=== PATIENT | male | born 1955 | race Caucasian/White ===

== ENCOUNTER → 2019-07-10 | Outpatient (CLI) | payer OTHER | END | disposition home or self-care (01) | LOC: CFH 07:55 | PROVIDERS: ATTEND Nurse Practitioner Family | DX: R94.2 Abnormal results of pulmonary function studies (principal); F10.20 Alcohol dependence, uncomplicated | CPT/HCPCS: 70490 ==

== ENCOUNTER 2020-02-28 23:08 | Emergency (ER) | payer MEDICARE, OTHER ==
[~2020-02-28] VITALS: Ht 185.4 cm; Wt 97.0 kg
[2020-02-28 23:42] VITALS: BP 115/67
[2020-02-28] MEDS ORDERED: [UNRECOGNIZED DRUG - OTHER] (23:45)
[2020-02-28] MEDS ORDERED: DESYREL (23:45)
[2020-02-28] MEDS ORDERED: LOSA1TAB19 PO (23:45)
[2020-02-28] MEDS ORDERED: ASPI-515 PO (23:45)
--- NOTE | 2020-02-28 23:49 | NUR ---
PT UP TO RESTROOM ON STEADY GAIT, DENIES DIZZINESS.
--- NOTE | 2020-02-29 00:39 | NUR ---
PT RESTING ON GURNEY, NOSE BLEED HAS STOPPED. SPOUSE AT BEDSIDE.
== END 2020-02-29 01:23 | disposition home or self-care (01) ==
LOC: ED 02-29 00:01
DX: R04.0 Epistaxis (principal); J45.909 Unspecified asthma, uncomplicated; I10 Essential (primary) hypertension
CPT/HCPCS: 99283

== ENCOUNTER 2020-09-28 11:17 | Emergency (ER) | payer MEDICARE, OTHER ==
[~2020-09-28] VITALS: Ht 185.4 cm; Wt 92.2 kg
[~2020-09-28 11:17] MED LIST: ASPI-963 PO; DESYREL; LOSA1TAB19 PO; [UNRECOGNIZED DRUG - OTHER]
--- NOTE | 2020-09-28 11:34 | NUR ---
PATIENT WALKED BACK FROM TRIAGE WITH CHIEF C/O SHAKINESS. PATIENT REPORTS COUGH, SOB, CONGESTION AND MUCUS PRODUCTION. PATIENT STATES WHEN HE WAKES UP HE IS "REALLY SHAKY" X3-4 DAYS. PATIENT REPORTS SHAKINESS ONGOING FOR A LONG TIME BUT HAS GOTTEN WORSE THE LAST FEW DAYS. PATIENT DENIES FEVER, DENIES N/V/D. PATIENT'S BASELINE O2 NEEDS ARE 2 LPM NC, NO INCREASE IN O2 DEMAND. NADN, VSS, CALL LIGHT WITHIN REACH.
--- NOTE | 2020-09-28 12:31 | NUR ---
PATIENT SITTING IN GURNEY, NADN, VSS, PILLOW PROVIDED FOR COMFORT, CALL LIGHT WITHIN REACH. WAITING FOR IMAGING RESULTS.
[2020-09-28 13:01] VITALS: BP 113/69
== END 2020-09-28 13:22 | disposition home or self-care (01) ==
LOC: ED 12:40
DX: J00 Acute nasopharyngitis [common cold] (principal); Z20.822 Contact with and (suspected) exposure to COVID-19; R06.02 Shortness of breath; I10 Essential (primary) hypertension
CPT/HCPCS: 71045; 87635; 99284

== ENCOUNTER 2020-10-15 22:12 | Emergency (ER) | payer MEDICARE, OTHER ==
[~2020-10-15] VITALS: Ht 185.4 cm; Wt 95.0 kg
[2020-10-15 22:15] VITALS: BP 126/66
[2020-10-15] MEDS ORDERED: LIDOCAINE-MPF 1%, 5ML ONE (22:46)
[2020-10-15] MEDS ORDERED: DIPH,PERTUSS(ACELL),TET VAC/PF 0.5 ML IM-VACC ONE ×2 (22:46→23:00)
[2020-10-15] MEDS ORDERED: LIDOCAINE-MPF 1%, 5ML INFIL ONE (23:00)
[2020-10-15] MEDS ORDERED: NEOSPORIN OINT. PKT 1 PACKET ONE (23:13)
== END 2020-10-15 23:36 | disposition home or self-care (01) ==
LOC: ED 22:55
DX: S61.012A Laceration without foreign body of left thumb without damage to nail, initial encounter (principal); I10 Essential (primary) hypertension; W26.9XXA Contact with unspecified sharp object(s), initial encounter; Y93.89 Activity, other specified; Y92.009 Unspecified place in unspecified non-institutional (private) residence as the place of occurrence of the external cause; Y99.8 Other external cause status
CPT/HCPCS: 12001; 90471; 90715; 99283

== ENCOUNTER 2020-11-14 17:15 | Emergency (ER) | payer MEDICARE, OTHER ==
[~2020-11-14] VITALS: Ht 185.4 cm; Wt 93.4 kg
--- NOTE | 2020-11-14 18:18 | NUR ---
PT HAS CO NASAL CONGESTION AND UNABLE TO BREATH THROUGH NOSE. DENIES COUGH OR SORE THROAT. HAS TRIED OTC MED.
[2020-11-14 21:20] VITALS: BP 124/76
--- NOTE | 2020-11-14 21:22 | NUR ---
Rx reviewed with pt and family. Patient/Caregiver given discharge instructions and they have confirmed that they understand the instructions. Patient ambulatory with steady gait.
== END 2020-11-14 21:24 | disposition home or self-care (01) ==
LOC: ED 19:10
DX: B34.9 Viral infection, unspecified (principal); R09.81 Nasal congestion; J34.89 Other specified disorders of nose and nasal sinuses; R05 Cough; I10 Essential (primary) hypertension
CPT/HCPCS: 71045; 99283

== ENCOUNTER → 2021-02-06 | Outpatient (CLI) | payer MEDICARE, OTHER | END | disposition home or self-care (01) | LOC: CFH 14:07 | PROVIDERS: ATTEND Nurse Practitioner Family | DX: J98.11 Atelectasis (principal) | CPT/HCPCS: 71046 ==

== ENCOUNTER 2021-04-09 10:16 | Emergency (ER) | payer MEDICARE, OTHER ==
[~2021-04-09] VITALS: Ht 185.4 cm; Wt 88.5 kg
[2021-04-09] MEDS ORDERED: KETOROLAC 30 MG/1 ML IM ONE (12:00)
[2021-04-09 12:06] LABS: BASOPHILS % (AUTO) 0 % (0-1); EOSINOPHILS % (AUTO) 1 % (1-7); LYMPHOCYTES % (AUTO) 6 % (22-44); MEAN CORPUSCULAR HEMOGLOBIN 31.8 pg (27.5-34.5); MEAN CORPUSCULAR HGB CONC 36.2 g/dL (33.2-36.2); MEAN PLATELET VOLUME 8.9 fL (7.4-10.4); MONOCYTES % (AUTO) 7 % (2-9); NEUTROPHILS % (AUTO) 87 % (42-75); PLATELET COUNT 180 x10^3/uL (130-400); RED BLOOD COUNT 4.53 x10^6/uL (4.38-5.82); RED CELL DISTRIBUTION WIDTH 14.8 % (9.4-14.8)
[2021-04-09 12:16] LABS: ALBUMIN 4.1 g/dL (3.4-5.0); ANION GAP 7 mmol/L (5-15); CALCIUM 9.8 mg/dL (8.5-10.1); CHLORIDE 107 mmol/L (98-107)
[2021-04-09] MEDS ORDERED: KETOROLAC 30 MG/1 ML ONE (12:18)
[2021-04-09 12:20] LABS: ALANINE AMINOTRANSFERASE 10 U/L (12-78); ALKALINE PHOSPHATASE 50 U/L (45-117); CREATININE 0.74 mg/dL (0.7-1.3); TOTAL PROTEIN 6.7 g/dL (6.4-8.2)
[2021-04-09 12:21] VITALS: BP 129/69
[2021-04-09 12:29] LABS: MICROSCOPIC INDICATED
--- NOTE | 2021-04-09 12:32 | NUR ---
PT RESTING IN BED WITH FAMILY AT PT SIDE, PT ON MONITOR WITH PT VSS. PT MEDICATED PER OCT.
== END 2021-04-09 13:29 | disposition home or self-care (01) ==
LOC: ED 13:23
DX: N30.00 Acute cystitis without hematuria (principal); M54.5 Low back pain; I10 Essential (primary) hypertension; J45.909 Unspecified asthma, uncomplicated; G20 Parkinson's disease
CPT/HCPCS: 36415; 74021; 80053; 81001; 85025; 87086; 96372; 99284; J1885

== ENCOUNTER 2021-04-20 18:45 | Emergency (ER) | payer MEDICARE, OTHER ==
[~2021-04-20] VITALS: Ht 185.4 cm; Wt 90.0 kg
[2021-04-20 19:27] LABS: BASOPHILS % (AUTO) 0 % (0-1); EOSINOPHILS % (AUTO) 4 % (1-7); LYMPHOCYTES % (AUTO) 12 % (22-44); MEAN CORPUSCULAR HEMOGLOBIN 30.9 pg (27.5-34.5); MEAN CORPUSCULAR HGB CONC 35.3 g/dL (33.2-36.2); MEAN PLATELET VOLUME 8.3 fL (7.4-10.4); MONOCYTES % (AUTO) 9 % (2-9); NEUTROPHILS % (AUTO) 76 % (42-75); PLATELET COUNT 222 x10^3/uL (130-400); RED CELL DISTRIBUTION WIDTH 14.7 % (9.4-14.8)
[2021-04-20 19:35] LABS: ALANINE AMINOTRANSFERASE 14 U/L (12-78); ALBUMIN 3.9 g/dL (3.4-5.0); ANION GAP 7 mmol/L (5-15); CALCIUM 9.8 mg/dL (8.5-10.1); CHLORIDE 105 mmol/L (98-107); CREATININE 0.87 mg/dL (0.7-1.3)
[2021-04-20 19:37] LABS: ALKALINE PHOSPHATASE 53 U/L (45-117); BILIRUBIN,TOTAL 0.7 mg/dL (0.2-1.0); TOTAL PROTEIN 6.9 g/dL (6.4-8.2)
[2021-04-20 20:15] LABS: MICROSCOPIC NOT IND
[2021-04-20] MEDS ORDERED: SODIUM CHLORIDE FLUSH 10ML SYR IVF ONE (20:30)
--- NOTE | 2021-04-20 20:34 | NUR ---
PT TO CT AT THIS TIME
[2021-04-20] MEDS ORDERED: OMNIPAQUE 350 MG/ML, 100ML BOTTLE ONE (20:47)
[2021-04-20] MEDS ORDERED: ONDANSETRON 2MG/ML, 2ML IVPush ONE (21:30)
[2021-04-20] MEDS ORDERED: MORPHINE SULFATE 4 MG/ML, 1ML IVPush PRN (21:30)
[2021-04-20] MEDS ORDERED: KETOROLAC 30 MG/1 ML IVPush ONE (21:30)
[2021-04-20] MEDS ORDERED: ONDANSETRON 2MG/ML, 2ML ONE (21:33)
[2021-04-20] MEDS ORDERED: KETOROLAC 30 MG/1 ML ONE (21:33)
[2021-04-20] MEDS ORDERED: MORPHINE SULFATE 4 MG/ML, 1ML ONE (21:33)
[2021-04-20 21:43] VITALS: BP 134/76
--- NOTE | 2021-04-20 21:44 | NUR ---
PT MEDICATED PER MAR, VSS, TOLERATED WELL NADN, AT BEDSIDE
--- NOTE | 2021-04-20 23:44 | NUR ---
Patient/Caregiver given discharge instructions and they have confirmed that they understand the instructions. Patient wheeled to dc desk
== END 2021-04-20 23:46 | disposition home or self-care (01) ==
LOC: ED 19:33
DX: K40.90 Unilateral inguinal hernia, without obstruction or gangrene, not specified as recurrent (principal); N20.2 Calculus of kidney with calculus of ureter; K86.89 Other specified diseases of pancreas; I10 Essential (primary) hypertension
CPT/HCPCS: 36415; 74177; 80053; 81003; 83690; 85025; 96374; 96375; 99285; J1885; J2270; J2405; Q9967

== ENCOUNTER → 2021-05-17 | Outpatient (CLI) | payer MEDICARE, OTHER | END | disposition home or self-care (01) | LOC: STAR 14:21 | PROVIDERS: ATTEND Surgery | DX: Z01.812 Encounter for preprocedural laboratory examination (principal); Z20.822 Contact with and (suspected) exposure to COVID-19 ==